=== PATIENT | female | born 1955 | race Caucasian/White ===

== ENCOUNTER 2016-10-18 06:29 | Day surgery (SDC) | payer BC ==
[2016-10-15 17:30] LABS: HEMATOCRIT 42.6 % (36.0-48.0); HEMOGLOBIN 14.7 g/dL (12.0-16.0)
[2016-10-15 18:03] LABS: ALBUMIN 3.8 G/DL (3.5-5.0); ALKALINE PHOSPHATASE 63 U/L (45-117); CALCIUM, SERUM 9.8 MG/DL (8.5-10.4); CHLORIDE, SERUM 106 MMOL/L (96-112); CO2 (CARBON DIOXIDE) 27 MMOL/L (24-34); CREATININE 0.76 MG/DL (0.55-1.02); GFR AFRICAN AMERICAN 97 ML/MIN (>=60); GFR NON AFRICAN AMERICAN 84 ML/MIN (>=60); GLUCOSE, SERUM 128 MG/DL (60-99); SGOT(AST) 52 U/L (5-40); SGPT(ALT) 45 U/L (5-65); SODIUM, SERUM 142 MMOL/L (135-148); TOTAL BILIRUBIN 0.6 MG/DL (0-1.2); TOTAL PROTEIN 7.7 G/DL (6.0-8.5)
[2016-10-15 18:04] LABS: BUN (BLOOD UREA NITROGEN) 9 MG/DL (6-23); GLOBULIN 3.9 G/DL (2.5-4.1)
--- NOTE | ~2016-10-18 | OP ---
Record Of Operation [facility] [address] [place]. [address] NAME: RADHA MENDEZ : 53 STATUS : [facility]#: [id number] AGE: 61 ADM/REG DATE : 10/18/16 MR#: [id number] REPORT SERV DATE: 10/18/16 DICTATED BY: KARSON JANE DATE: 10/18/16 REPORT STATUS : Draft TRANSCRIBED BY: MODL DATE: 10/18/16 DATE OF PROCEDURE: 10/18/2016 PREOPERATIVE DIAGNOSIS: Severe chronic cholecystitis with cholelithiasis. POSTOPERATIVE DIAGNOSIS: Severe chronic cholecystitis with cholelithiasis. PROCEDURE: 1. Laparoscopic cholecystectomy (four-site). 2. Laparoscopic intraoperative cholangiogram. SURGEON: Karson Jane M.D. DESCRIPTION OF OPERATIVE PROCEDURE: The patient was brought to the operating suite and placed in supine position. She underwent satisfactory general endotracheal anesthesia without incident. The skin of the abdomen was scrubbed, prepped, and draped in usual sterile fashion. 0.5% Marcaine with Epinephrine was utilized as supplemental local anesthesia at all intended trocar sites. Initially, an infraumbilical incision was performed, dissecting through the skin and subcutaneous tissue to the umbilical fascia. This was grasped with a Valentina clamp and elevated, and a disposable Veress insufflation needle was inserted through the umbilical fascia into the peritoneal cavity, following which a rigid forward-viewing 10 mm laparoscope was inserted. Visualization of the intra-abdominal parietes revealed no evidence of injury from initial insufflation or puncture. A cursory examination of the pelvis was normal. Attention was turned to the upper abdomen, where an additional 5 mm trocar was placed to the right of falciform ligament, and then an additional 5 mm grasping instrument was inserted through the umbilical fascia next to the umbilical trocar. Attention was turned to the upper abdomen. It was immediately noted that the gallbladder was severely chronically thickened and diseased and it was "packed full" of stones both on gross visualization as well as ultrasound imaging. Additionally, the gallbladder was quite oblong and it was extremely difficult initially to identify the infundibular portion. Tedious dissection was performed, elevating the gallbladder and dissecting towards the anticipated area of the triangle of Calot. However, to achieve adequate visualization and manipulation, it was necessary to proceed with two additional 5 mm trocars under direct visualization in the right upper quadrant. Then, the gallbladder was grasped and manipulated and because the anatomy was extremely difficult to delineate, I decided to proceed with a "dome down" dissection technique, wherein the fundus and body of the gallbladder were dissected free with cautery from the liver bed, and then eventually the gallbladder was suspended by a markedly dilated infundibulum for manipulation. I could see and palpate with my instruments a large stone in the suspected infundibular area. It was frankly quite difficult to find a soft area to proceed with cholangiography. However, eventually, I did create an enterotomy just below a large stone or sludge ball with immediate expression of bile and old sludge. Record Of Operation [facility] [address] [facility] [place]. [address] NAME: RADHA MENDEZ : 53 STATUS : [facility]#: [id number] AGE: 61 ADM/REG DATE : 10/18/16 MR#: [id number] REPORT SERV DATE: 10/18/16 DICTATED BY: KARSON JANE DATE: 10/18/16 REPORT STATUS : Draft TRANSCRIBED BY: LUIZ DATE: 10/18/16 A percutaneously introduced cholangio-sheath was inserted through the upper abdominal wall, through which was passed a saline-flushed Arrow cholangiocath. Eventually, I was able to manipulate the cholangiocath into what was suspected to be the infundibulum or cystic duct and retained this with a Weck polymer clip. Sequential fluoroscopic intraoperative cholangiography revealed that indeed I was in the cystic duct. The intrahepatic and extrahepatic biliary ductal systems were mildly to moderately dilated and initially during the cholangiography, I felt like there may be some "filling defects." However, with further pressure from the dye and flushing, the filling defects went away and I suspect they were actually air bubbles. With this information in hand, I knew that my enterotomy was in the cystic duct. The retaining clip was removed from the cystic duct site of the enterotomy as well as the cholangiocath. The cystic duct was controlled with three Weck polymer clips, 5 mm in size, and divided. Likewise, cystic vasculature was controlled in the same fashion, and the gallbladder was detached from its vasculature as well as attachments to the biliary system. The gallbladder was placed inside of an Endo retrieval pouch. Copious irrigation was performed, and hemostasis was assured. Next, trocars were removed under direct visualization. No muscular bleeding was noted. All trocars were removed. CO2 was allowed to egress from the peritoneal cavity, and the gallbladder was removed inside the Endo retrieval pouch. The umbilicus was closed with [id number] suture of 0 Vicryl, and all the other sites were closed subcutaneously with interrupted 4-0 Vicryl, then running subcuticular stitch of 4-0 Vicryl for the skin. Dermabond skin adhesive was placed. The patient tolerated the procedure reasonably well and was returned to PACU in stable condition. At the termination of the procedure, sponge, needle, lap, and instrument counts were correct x3. EBL was 10 to 15 mL. WR/MODL Karson Jane M.D. / [id number] CC: Meredith Monsivais M.D.
[~2016-10-18 06:29] MED LIST: ALTACE10 MG PO; ASAB PO; CELEXA20 PO; DIABETA5 PO; GLUCOPHAGE1000 MG PO; HUMIR1 SC; JANUVIA100 MG PO; LEVEMFLXPN SC; MULTIPLE VIT PO; NOVOPEN SC; OCUVITE PO; VICTOZA18 MG/3 ML SC; ZOCOR10 PO; ZOCOR20 PO
== END 2016-10-18 16:00 | disposition home or self-care (01) ==
LOC: SDC 06:29
PROVIDERS: Specialist
PROC: BF13YZZ Fluoroscopy of Gallbladder and Bile Ducts using Other Contrast (ICD-10-PCS; 2016-10-18)
PROC: 0FT44ZZ Resection of Gallbladder, Percutaneous Endoscopic Approach (ICD-10-PCS; principal; 2016-10-18 07:45)
DX: K80.10 Calculus of gallbladder with chronic cholecystitis without obstruction (principal); I10 Essential (primary) hypertension; E11.9 Type 2 diabetes mellitus without complications; L40.9 Psoriasis, unspecified; K76.0 Fatty (change of) liver, not elsewhere classified; F32.9 Major depressive disorder, single episode, unspecified; Z90.89 Acquired absence of other organs; Z79.82 Long term (current) use of aspirin; Z79.4 Long term (current) use of insulin; Z79.84 Long term (current) use of oral hypoglycemic drugs; Z79.899 Other long term (current) drug therapy; Z98.890 Other specified postprocedural states; Z92.21 Personal history of antineoplastic chemotherapy; Z92.3 Personal history of irradiation
CPT/HCPCS: 74300; 76000; 80053; 82962; 85014; 85018; 88304; 93005; A9270-GY; J0690; J1170; J1885; J2250; J2405; J2550; J2710; J3010; Q9967